=== PATIENT | female | born 1985 | race Caucasian/White ===

== ENCOUNTER → 2024-06-24 | Outpatient (CLI) | payer BC, OTHER | LOC: M WHC 10:59 | PROVIDERS: ATTEND Nurse Practitioner Family | DX: Z12.31 Encounter for screening mammogram for malignant neoplasm of breast (principal); R92.333 Mammographic heterogeneous density, bilateral breasts ==

== ENCOUNTER → 2024-07-18 | Outpatient (CLI) | payer BC, OTHER | LOC: M WHC 10:37 | PROVIDERS: ATTEND Nurse Practitioner Family | DX: N64.59 Other signs and symptoms in breast (principal); N60.11 Diffuse cystic mastopathy of right breast | CPT/HCPCS: 76641; 76642; 77066; G0279 ==